=== PATIENT | female | born 1930 | race Caucasian/White ===

== ENCOUNTER → 2016-09-02 | Day surgery (SDC) | payer MEDICARE, OTHER ==
[~2016-09-02] VITALS: Ht 160 cm; Wt 53.5 kg
== END | disposition home or self-care (01) ==
LOC: FAS 09:30
DX: H26.9 Unspecified cataract (principal); E78.5 Hyperlipidemia, unspecified; E03.9 Hypothyroidism, unspecified; Z79.899 Other long term (current) drug therapy; F17.210 Nicotine dependence, cigarettes, uncomplicated
CPT/HCPCS: V2632